=== PATIENT | female | born 2000 | race Caucasian/White ===

== ENCOUNTER 2024-10-10 06:21 | Day surgery (SDC) | payer OTHER, SELFPAY ==
[2024-10-10 13:40] VITALS: BP 118/72; BMI 22.3
[2024-10-10 13:51] VITALS: BMI 22.3
[2024-10-10] MEDS: NORMOSOL-R/PLASMALYTE-A 1000 IV (14:15)
[2024-10-10 15:40] VITALS: BP 87/48
[2024-10-10 15:45] VITALS: BP 91/44
[2024-10-10 16:00] VITALS: BP 83/49
[2024-10-10 16:15] VITALS: BP 91/54
[2024-10-10 16:25] VITALS: BP 102/68
== END 2024-10-10 16:38 | disposition home or self-care (01) ==
LOC: SDS 06:21
PROVIDERS: ATTENDING PHYSICIAN Surgery; FAMILY PHYSICIAN Physician Assistant Medical
DX: K60.2 Anal fissure, unspecified (principal)
CPT/HCPCS: 46505; J0585